=== PATIENT | female | born 1980 | race Caucasian/White ===

== ENCOUNTER 2022-06-14 14:28 | Emergency (ER) | payer BC, OTHER ==
[~2022-06-14] VITALS: Ht 172.7 cm; Wt 86.3 kg
[2022-06-14 16:15] VITALS: BP 131/92
[2022-06-14] MEDS ORDERED: HYDROcodone-ACET 10/325MG TAB PO ONE (16:30)
[2022-06-14] MEDS ORDERED: METH750T22 PO (17:53)
[2022-06-14] MEDS ORDERED: HYDR-4798 PO (17:53)
[2022-06-14] MEDS ORDERED: ONDA-144 PO (18:06)
== END 2022-06-14 18:09 | disposition home or self-care (01) ==
LOC: EDBD 14:28 → ER 14:32
DX: S39.012A Strain of muscle, fascia and tendon of lower back, initial encounter (principal); S23.9XXA Sprain of unspecified parts of thorax, initial encounter; Z90.710 Acquired absence of both cervix and uterus; V43.62XA Car passenger injured in collision with other type car in traffic accident, initial encounter; Y93.89 Activity, other specified; Y92.410 Unspecified street and highway as the place of occurrence of the external cause; Y99.8 Other external cause status
CPT/HCPCS: 71111; 72070; 72100